=== PATIENT | male | born 1970 | race Caucasian/White ===

== ENCOUNTER 2021-10-05 01:17 | Observation (INO) | payer OTHER ==
[2021-10-05 02:11] LABS: ALT (SGPT) 25 U/L (8-55); AST (SGOT) 24 U/L (5-34); Albumin 4.5 g/dL (3.5-5.0); Alkaline Phosphatase 91 U/L (40-110); Anion Gap 16 mmol/L (10-20); BUN (Urea Nitrogen) 16 mg/dL (8.9-20.6); Bilirubin, Total 0.9 mg/dL (0.2-1.2); Calc. Creatinine Clearance 0 mL/min (70-130); Calcium 9.6 mg/dL (7.8-10.44); Carbon Dioxide 22 mmol/L (22-29); Chloride 103 mmol/L (98-107); Globulin 3.8 g/dL (2.4-3.5); Glucose 93 mg/dL (70-105); Potassium 4.3 mmol/L (3.5-5.1); Protein, Total 8.3 g/dL (6.0-8.3); Sodium 137 mmol/L (136-145)
[2021-10-05 02:14] LABS: Hemoglobin 17.5 g/dL (13.5-17.5); Mean Corpuscular HGB CONC 34.4 g/dL (32.0-36.0); Mean Corpuscular Volume 90.1 fl (81.2-95.1); Platelet Count 394 10x3/uL (150-450); RBC Distribution Width 12.5 % (11.5-14.5); Red Blood Cell (RBC) Count 5.64 10x6/uL (4.32-5.72); White Blood Cell (WBC) Count 20.1 10x3/uL (3.5-10.5)
[2021-10-05 02:16] LABS: MDiff Complete? YES
[2021-10-05 02:17] LABS: Lymphocytes 4 % (21-51); Monocytes 7 % (0-10); Neutrophil 89 % (42-75)
[2021-10-05 02:21] LABS: SARS-CoV-2 NAA Rapid Test Not Detected (NotDetected)
[2021-10-05 03:27] LABS: Platelet Morphology Comment Appears Adequate; RBC Morphology Normal
[2021-10-05] MEDS ORDERED: Nitroglycerin 0.4 MG TAB (25 Tab Bottle) SL PRN (05:00)
[2021-10-05 05:48] VITALS: BMI 36.6
[2021-10-05] MEDS: Nitroglycerin 2% Ointment 1 INCH/1 GM Packet TOP SCH ×2 (06:06→14:07)
[2021-10-05 06:15] LABS: Magnesium 1.7 mg/dL (1.6-2.6)
[2021-10-05 06:22] LABS: Troponin I Less than 0.010 ng/mL (< 0.028)
[2021-10-05 08:53] LABS: Troponin I Less than 0.010 ng/mL (< 0.028)
[2021-10-05] MEDS ORDERED: Aspirin 81 mg Enteric Coated Tablet PO SCH (09:00)
[2021-10-05] MEDS ORDERED: Amlodipine 10 MG TAB PO SCH (09:00)
[2021-10-05] MEDS ORDERED: Enoxaparin Sodium 40 MG/0.4 ML SYRINGE SC SCH (09:00)
[2021-10-05] MEDS ORDERED: Metoprolol Tartrate 50 MG TAB PO SCH (09:00)
[2021-10-05 09:26] LABS: #Monocytes 0.9 10x3/uL (0.0-1.1); %Basophils 0.2 % (0.0-2.0); %Eosinophils 0.1 % (0.0-6.0); %Lymphocytes 10.4 % (18.0-47.0); %Monocytes 6.3 % (0.0-10.0); %Neutrophils 82.5 % (40.0-75.0); Hemoglobin 14.8 g/dL (13.5-17.5); Mean Corpuscular HGB CONC 35.1 g/dL (32.0-36.0); Mean Corpuscular Hemoglobin 31.6 pg (27.0-33.0); Platelet Count 342 10x3/uL (150-450); RBC Distribution Width 12.8 % (11.5-14.5); Red Blood Cell (RBC) Count 4.69 10x6/uL (4.32-5.72); White Blood Cell (WBC) Count 14.6 10x3/uL (3.5-10.5)
[2021-10-05] MEDS ORDERED: Acetaminophen 325 MG TAB PO PRN (11:29)
[2021-10-05 11:46] VITALS: BP 123/62; TEMP 98.6
[2021-10-05] MEDS ORDERED: Atorvastatin Calcium 40 MG TAB PO SCH (21:00)
== END 2021-10-05 15:18 ==
LOC: CSHERS 01:17 → CSHTELE 05:32
PROVIDERS: ADMIT Emergency Medicine; ATTEND Emergency Medicine
DX: R11.2 Nausea with vomiting, unspecified (principal); R07.89 Other chest pain; R10.11 Right upper quadrant pain; R19.7 Diarrhea, unspecified; D72.829 Elevated white blood cell count, unspecified; I25.10 Atherosclerotic heart disease of native coronary artery without angina pectoris; I11.9 Hypertensive heart disease without heart failure; K21.9 Gastro-esophageal reflux disease without esophagitis; K76.0 Fatty (change of) liver, not elsewhere classified; M19.90 Unspecified osteoarthritis, unspecified site; I25.2 Old myocardial infarction; E78.5 Hyperlipidemia, unspecified; I07.1 Rheumatic tricuspid insufficiency; Z79.82 Long term (current) use of aspirin; Z79.899 Other long term (current) drug therapy; Z91.010 Allergy to peanuts; Z91.013 Allergy to seafood; Z95.5 Presence of coronary angioplasty implant and graft; Z20.822 Contact with and (suspected) exposure to COVID-19
CPT/HCPCS: 36415; 71045; 76705; 80053; 83735; 84484; 85025; 93005; 93010; 93306; 96372; G0378; J1650; U0002

== ENCOUNTER 2022-05-24 03:12 | Emergency (ER) | payer OTHER ==
[2022-05-24 03:34] LABS: #Basophils 0.1 10x3/uL (0.0-0.2); #Eosinphils 0.2 10x3/uL (0.0-0.5); #Monocytes 1.1 10x3/uL (0.0-1.1); #Neutrophils 6.8 10x3/uL (1.5-8.4); %Basophils 0.6 % (0.0-2.0); %Eosinophils 1.7 % (0.0-6.0); %Lymphocytes 16.8 % (18.0-47.0); %Monocytes 10.9 % (0.0-10.0); %Neutrophils 69.6 % (40.0-75.0); Hemoglobin 14.4 g/dL (13.5-17.5); Mean Corpuscular Volume 91.2 fl (81.2-95.1); Mean Platelet Volume 8.7 fl (7.4-10.4); Platelet Count 358 10x3/uL (150-450); RBC Distribution Width 12.7 % (11.5-14.5); Red Blood Cell (RBC) Count 4.64 10x6/uL (4.32-5.72); White Blood Cell (WBC) Count 9.8 10x3/uL (3.5-10.5)
[2022-05-24 03:54] LABS: ALT (SGPT) 18 U/L (8-55); AST (SGOT) 17 U/L (5-34); Albumin 4.1 g/dL (3.5-5.0); Alkaline Phosphatase 99 U/L (40-110); Anion Gap 15 mmol/L (10-20); BUN (Urea Nitrogen) 12 mg/dL (8.9-20.6); Bilirubin, Total 0.5 mg/dL (0.2-1.2); Calc. Creatinine Clearance 0 mL/min (70-130); Carbon Dioxide 24 mmol/L (22-29); Chloride 105 mmol/L (98-107); Estimated GFR 106; Globulin 2.9 g/dL (2.4-3.5); Glucose 102 mg/dL (70-105); Potassium 4.2 mmol/L (3.5-5.1); Sodium 140 mmol/L (136-145)
[2022-05-24 03:59] LABS: SARS-CoV-2 NAA Rapid Test Not Detected (NotDetected)
[2022-05-24 07:19] LABS: Troponin I Less than 0.010 ng/mL (< 0.028)
[2022-05-24] MEDS ORDERED: Morphine 4 MG/ML VIAL ONE (08:06)
== END 2022-05-24 09:57 | disposition short-term general hospital (02) ==
LOC: CSHERS 03:12
DX: R07.89 Other chest pain (principal); I10 Essential (primary) hypertension; E11.9 Type 2 diabetes mellitus without complications; K21.9 Gastro-esophageal reflux disease without esophagitis; I25.10 Atherosclerotic heart disease of native coronary artery without angina pectoris; Z20.822 Contact with and (suspected) exposure to COVID-19; Z79.82 Long term (current) use of aspirin; Z79.4 Long term (current) use of insulin
CPT/HCPCS: 36415; 71045; 80053; 84484; 85025; 93005; 96374; J2270; U0002

== ENCOUNTER 2024-02-17 12:11 | Observation (INO) | payer OTHER ==
[2024-02-17 12:43] LABS: #Basophils 0.04 10x3/uL (0.0-0.2); #Eosinphils 0.13 10x3/uL (0.0-0.5); %Basophils 0.5 % (0.0-2.0); %Eosinophils 1.5 % (0.0-6.0); %Lymphocytes 24.2 % (18.0-47.0); %Monocytes 10.4 % (0.0-10.0); %Neutrophils 63.2 % (40.0-75.0); Hematocrit 45.2 % (38.8-50.0); Mean Corpuscular HGB CONC 33.2 g/dL (32.0-36.0); Mean Corpuscular Hemoglobin 30.2 pg (27.0-33.0); Mean Corpuscular Volume 91.1 fL (81.2-95.1); Mean Platelet Volume 8.7 fL (7.4-10.4); Platelet Count 369 10x3/uL (150-450); RBC Distribution Width 12.2 % (11.5-14.5); Red Blood Cell (RBC) Count 4.96 10x6/uL (4.32-5.72); White Blood Cell (WBC) Count 8.7 10x3/uL (3.5-10.5)
[2024-02-17 13:01] LABS: ALT (SGPT) 40 U/L (8-55); AST (SGOT) 31 U/L (5-34); Albumin 4.2 g/dL (3.5-5.0); Alkaline Phosphatase 85 U/L (40-110); Anion Gap 14 mmol/L (10-20); BUN (Urea Nitrogen) 11 mg/dL (8.4-25.7); Bilirubin, Total 0.7 mg/dL (0.2-1.2); Calc. Creatinine Clearance 0 mL/min (70-130); Calcium 9.7 mg/dL (7.8-10.44); Carbon Dioxide 24 mmol/L (22-29); Chloride 104 mmol/L (98-107); Estimated GFR 105; Globulin 3.4 g/dL (2.4-3.5); Glucose 73 mg/dL (70-105); Potassium 4.1 mmol/L (3.5-5.1); Protein, Total 7.6 g/dL (6.0-8.3); Sodium 138 mmol/L (136-145)
[2024-02-17 13:05] LABS: Troponin I Less than 0.010 ng/mL (< 0.028)
[2024-02-17] MEDS ORDERED: Calcium Carbonate 500 MG ChewTAB PO PRN (15:30)
[2024-02-17] MEDS ORDERED: Communication Order-Pharmacy FS SCH (16:30)
[2024-02-17 16:32] LABS: Troponin I Less than 0.010 ng/mL (< 0.028)
[2024-02-17 19:47] LABS: Troponin I Less than 0.010 ng/mL (< 0.028)
[2024-02-17 20:09] VITALS: BMI 35.5
[2024-02-17] MEDS: Atorvastatin Calcium 40 MG TAB PO SCH (21:05)
[2024-02-17] MEDS: Pantoprazole DR 40 MG TAB PO SCH (21:05)
[2024-02-17] MEDS: Acetaminophen/Codeine 30-300mg Tablet PO PRN (21:11)
[2024-02-17] MEDS: Lidocaine 2% Viscous Solution 10 ML, Aluminum & Magnesium Hydroxide 30 ML SSW SCH (21:15)
[2024-02-17] MEDS: Acetaminophen 325 MG TAB PO SCH (21:15)
[2024-02-18 04:30] LABS: INR-International Normal Ratio 1.1; PTT 27.6 sec (22.0-33.0); Prothrombin Time 11.4 sec (9.5-12.1)
[2024-02-18 04:51] LABS: ALT (SGPT) 36 U/L (8-55); AST (SGOT) 27 U/L (5-34); Albumin 3.6 g/dL (3.5-5.0); Alkaline Phosphatase 89 U/L (40-110); Anion Gap 13 mmol/L (10-20); BUN (Urea Nitrogen) 15 mg/dL (8.4-25.7); Bilirubin, Total 0.5 mg/dL (0.2-1.2); Calc. Creatinine Clearance 142 mL/min (70-130); Calcium 9.1 mg/dL (7.8-10.44); Carbon Dioxide 22 mmol/L (22-29); Chloride 106 mmol/L (98-107); Cholesterol 108 mg/dl (< 200 Desired); Estimated GFR 104; Globulin 3.6 g/dL (2.4-3.5); Glucose 85 mg/dL (70-105); HDL Cholesterol 27 mg/dL (>60 Neg Risk); LDL Cholesterol, Calculated 57 mg/dL; Potassium 4.2 mmol/L (3.5-5.1); Protein, Total 7.2 g/dL (6.0-8.3); Sodium 137 mmol/L (136-145); Triglycerides 118 mg/dL (Less than 150)
[2024-02-18 04:54] LABS: #Basophils 0.06 10x3/uL (0.0-0.2); #Eosinphils 0.27 10x3/uL (0.0-0.5); #Monocytes 1.06 10x3/uL (0.0-1.1); #Neutrophils 5.64 10x3/uL (1.5-8.4); %Basophils 0.6 % (0.0-2.0); %Eosinophils 2.8 % (0.0-6.0); %Lymphocytes 26.8 % (18.0-47.0); %Neutrophils 58.6 % (40.0-75.0); Hematocrit 43.1 % (38.8-50.0); Hemoglobin 14.8 g/dL (13.5-17.5); Mean Corpuscular HGB CONC 34.3 g/dL (32.0-36.0); Mean Corpuscular Hemoglobin 31.1 pg (27.0-33.0); Mean Corpuscular Volume 90.5 fL (81.2-95.1); Mean Platelet Volume 8.9 fL (7.4-10.4); Platelet Count 377 10x3/uL (150-450); RBC Distribution Width 12.3 % (11.5-14.5); Red Blood Cell (RBC) Count 4.76 10x6/uL (4.32-5.72); White Blood Cell (WBC) Count 9.6 10x3/uL (3.5-10.5)
[2024-02-18] MEDS: Ezetimibe 10 MG TAB PO SCH (06:15)
[2024-02-18] MEDS: Aspirin 81 mg Enteric Coated Tablet PO SCH (06:16)
[2024-02-18] MEDS: Clopidogrel Bisulfate 75 MG TAB PO SCH (06:16)
[2024-02-18 08:17] VITALS: TEMP 98.5
[2024-02-18] MEDS ORDERED: Ezetimibe 10 MG TAB PO SCH (09:00)
[2024-02-18] MEDS ORDERED: Aspirin 81 mg Enteric Coated Tablet PO SCH (09:00)
[2024-02-18] MEDS ORDERED: Clopidogrel Bisulfate 75 MG TAB PO SCH (09:00)
[2024-02-18] MEDS: Famotidine 20 MG TAB PO SCH (09:04)
[2024-02-18] MEDS: predniSONE 20 MG TAB PO SCH (09:04)
[2024-02-18] MEDS: diphenhydrAMINE 25 MG CAP PO SCH (09:05)
[2024-02-18] MEDS ORDERED: Heparin 10,000 UNITS/ 10 ML VIAL ONE (09:09)
[2024-02-18] MEDS ORDERED: Nitroglycerin 50 MG/250 ML BOT 250 ML ONE (09:09)
[2024-02-18] MEDS ORDERED: fentaNYL 50 mcg/mL 1 mL Vial ONE (09:09)
[2024-02-18] MEDS ORDERED: Verapamil 5 MG/2 ML VIAL ONE (09:09)
[2024-02-18] MEDS ORDERED: Midazolam HCl 2 mg/2 ml Vial ONE (09:10)
[2024-02-18] MEDS ORDERED: Lidocaine 1% (PF) 30 ML VIAL ONE (09:15)
[2024-02-18] MEDS ORDERED: Acetaminophen/Codeine 30-300mg Tablet PO PRN ×2 (10:01)
[2024-02-18] MEDS ORDERED: Sodium Chloride 0.9% 200 ML IV PRN (10:01)
[2024-02-18] MEDS ORDERED: Nitroglycerin 0.4 MG TAB (25 Tab Bottle) SL PRN (10:01)
[2024-02-18] MEDS ORDERED: Iopamidol 300 61% 100 ML VIAL FS ONE (10:55)
[2024-02-18] MEDS: Amlodipine 10 MG TAB PO SCH (11:39)
[2024-02-18] MEDS: Isosorbide Mononitrate 30 MG ER.TAB PO SCH (11:39)
[2024-02-18 13:24] LABS: Hemoglobin A1c 5.4 % (4.0-6.0)
[2024-02-18 14:14] VITALS: BP 118/60
[2024-02-19] MEDS ORDERED: Aspirin 81 mg Enteric Coated Tablet PO SCH (09:00)
[2024-02-19] MEDS ORDERED: Ezetimibe 10 MG TAB PO SCH ×2 (09:00)
[2024-02-19] MEDS ORDERED: Clopidogrel Bisulfate 75 MG TAB PO SCH (09:00)
== END 2024-02-18 17:32 ==
LOC: CSHERS 12:11 → CSHERHOLD 15:24 → EEVIPCON 15:24 → CSHTELE 17:58
PROVIDERS: ADMIT Family Medicine; ATTEND Family Medicine
PROC: 4A023N7 Measurement of Cardiac Sampling and Pressure, Left Heart, Percutaneous Approach (ICD-10-PCS; principal; 2024-02-18)
PROC: B205YZZ Plain Radiography of Left Heart using Other Contrast (ICD-10-PCS; 2024-02-18)
PROC: B246ZZZ Ultrasonography of Right and Left Heart (ICD-10-PCS; 2024-02-18)
DX: R07.2 Precordial pain (principal); I25.10 Atherosclerotic heart disease of native coronary artery without angina pectoris; I10 Essential (primary) hypertension; E78.5 Hyperlipidemia, unspecified; K21.9 Gastro-esophageal reflux disease without esophagitis; G47.33 Obstructive sleep apnea (adult) (pediatric); G47.30 Sleep apnea, unspecified; K76.0 Fatty (change of) liver, not elsewhere classified; Z91.010 Allergy to peanuts; Z95.5 Presence of coronary angioplasty implant and graft; Z91.013 Allergy to seafood; Z87.19 Personal history of other diseases of the digestive system; Z79.899 Other long term (current) drug therapy; Z79.82 Long term (current) use of aspirin; Z79.02 Long term (current) use of antithrombotics/antiplatelets
CPT/HCPCS: 36415; 71045; 80053; 80061; 83036; 84484; 85025; 85379; 85610; 85730; 93005; 93306; 93458; 99152; C1769; C1894; G0378; J1644; J2001; J2250; J3010; J7512; Q9967

== ENCOUNTER 2025-01-31 19:30 | Emergency (ER) | payer OTHER ==
[2025-01-31 19:53] LABS: #Basophils 0.07 10x3/uL (0.0-0.2); #Eosinophils 0.09 10x3/uL (0.0-0.5); #Monocytes 0.82 10x3/uL (0.0-1.1); #Neutrophils 5.90 10x3/uL (1.5-8.4); %Basophils 0.8 % (0.0-2.0); %Eosinophils 1.0 % (0.0-6.0); %Lymphocytes 21.4 % (18.0-47.0); %Monocytes 9.3 % (0.0-10.0); %Neutrophils 67.2 % (40.0-75.0); Hematocrit 43.8 % (38.8-50.0); Hemoglobin 15.1 g/dL (13.5-17.5); Mean Corpuscular Hemoglobin 30.8 pg (27.0-33.0); Mean Corpuscular Volume 89.4 fL (81.2-95.1); Platelet Count 417 10x3/uL (150-450); Red Blood Cell (RBC) Count 4.90 10x6/uL (4.32-5.72); White Blood Cell (WBC) Count 8.79 10x3/uL (3.5-10.5)
[2025-01-31 20:09] LABS: ALT (SGPT) 26 U/L (Less than 45); AST (SGOT) 23 U/L (11-34); Albumin 4.3 g/dL (3.1-4.5); Alkaline Phosphatase 75 U/L (40-110); Anion Gap 13 mmol/L (10-20); BUN (Urea Nitrogen) 13 mg/dL (8.4-25.7); Bilirubin, Total 0.7 mg/dL (0.3-1.2); Calc. Creatinine Clearance 0 mL/min (70-130); Calcium 9.6 mg/dL (7.8-10.44); Carbon Dioxide 25 mmol/L (22-29); Chloride 103 mmol/L (98-107); Globulin 3.6 g/dL (2.4-3.5); Glucose 128 mg/dL (70-105); Potassium 4.2 mmol/L (3.5-5.1); Sodium 137 mmol/L (136-145)
[2025-01-31 20:12] LABS: Troponin I Less than 0.010 ng/mL (< 0.028)
[2025-01-31 22:26] LABS: Troponin I Less than 0.010 ng/mL (< 0.028)
== END 2025-01-31 22:56 ==
LOC: CSHERS 19:30
DX: R07.9 Chest pain, unspecified (principal); I10 Essential (primary) hypertension; K21.9 Gastro-esophageal reflux disease without esophagitis; I25.10 Atherosclerotic heart disease of native coronary artery without angina pectoris; Z79.02 Long term (current) use of antithrombotics/antiplatelets; Z79.899 Other long term (current) drug therapy
CPT/HCPCS: 36415; 71045; 80053; 84484; 85025; 93005